=== PATIENT | male | born 1965 | race Hispanic/Latino ===

== ENCOUNTER 2019-06-20 13:15 | Outpatient (CLI) | payer BC ==
[2019-06-20] MEDS ORDERED: Magnevist 469MG/ML 20 ML VIAL ONE (13:34)
--- NOTE | 2019-06-20 14:55 | MRI ---
EXAM: MRI of the pelvis/prostate without and with contrast HISTORY: Prostate cancer COMPARISON: None TECHNIQUE: Multiplanar multisequence MR images were obtained of the pelvis without and with IV contra st. Evaluation of this exam was performed with a [employer] workstation. FINDINGS: Central gland: Moderate hypertrophy of the central gland consistent with BPH. No suspicious low T2 si gnal lesion is seen. Peripheral zone: There is a 14 mm low T2 signal lesion in the left peripheral zone of the prostate ne ar the apex. This has low signal on the ADC map but not definitely bright signal on the high B value diffusion sequence. Seminal vesicles: Intact without abnormality Neurovascular bundles: Intact Pelvic lymph nodes: No pelvic adenopathy Other visualized intrapelvic structures: Unremarkable Osseous structures: No marrow signal abnormality IMPRESSION: PI-RADS Category 4-high likelihood that a clinically significant cancer is present.
== END 2019-06-20 13:16 | disposition home or self-care (01) ==
LOC: TBSIIMAG 13:15
PROVIDERS: ATTEND Urology
DX: C61 Malignant neoplasm of prostate (principal)
CPT/HCPCS: 72197; A9579

== ENCOUNTER 2019-11-11 07:27 | Outpatient (CLI) | payer BC ==
--- NOTE | 2019-11-11 09:07 | CT ---
CT ABDOMEN WITH ORAL AND IV CONTRAST: HISTORY: Prostate cancer. Left upper abdominal pain and left flank pain. COMPARISON: None. FINDINGS: The lung bases are unremarkable. There is 2.5 cm lesion in the posterior segment of the right lobe o f the liver with peripheral nodular enhancement. A small hiatal hernia is present. The spleen, panc reas, adrenal glands, and kidneys are normal. No free air, lymphadenopathy or free fluid is seen in the abdomen. The small bowel loops are not abn ormally dilated. There are vascular calcifications without evidence of aneurysmal dilatation of the abdominal aorta. No osteolytic or osteoblastic lesions are seen. In the lower chest, there is incomplete visualization of an 18 mm nodular density in the posterior me diastinum to the left of midline between the heart and descending thoracic aorta. IMPRESSION: 1. Small hiatal hernia. 2. Probable hemangioma. Evaluation with Technetium labeled RBC scan is recommended. 3. A nodular density in the posterior mediastinum. This should be evaluated with a dedicated contra st-enhanced CT scan of the chest. POS: [facility]
== END 2019-11-11 07:28 | disposition home or self-care (01) ==
LOC: SCSCT 07:27
PROVIDERS: ATTEND Family Medicine
DX: C61 Malignant neoplasm of prostate (principal); R10.9 Unspecified abdominal pain; K44.9 Diaphragmatic hernia without obstruction or gangrene; R93.7 Abnormal findings on diagnostic imaging of other parts of musculoskeletal system
CPT/HCPCS: 74170

== ENCOUNTER 2019-12-02 09:03 | Outpatient (CLI) | payer BC ==
--- NOTE | 2019-12-02 12:07 | CT ---
CT CHEST WITH IV CONTRAST: Date: 12/02/2019 HISTORY: Mediastinal mass. FINDINGS: There is a 2.0 cm well-circumscribed nodular density in the posterior mediastinum between the heart a nd the descending thoracic aorta to the left of midline. No other mediastinal masses or lymphadenopat hy seen. No hilar or axillary mass or lymphadenopathy identified. No pleural or pericardial effusions seen. No pneumothoraces, focal areas of consolidation, or lung masses/nodules are seen. There are mild degenerative changes in the spine. There is a probable hemangioma in the posterior seg ment of the right lobe of the liver. IMPRESSION: 2.0 cm posterior mediastinal mass. Further evaluation with PET scan would be helpful. POS: [facility]
== END 2019-12-02 09:04 | disposition home or self-care (01) ==
LOC: SCSCT 09:03
PROVIDERS: ATTEND Family Medicine
DX: J98.59 Other diseases of mediastinum, not elsewhere classified (principal)
CPT/HCPCS: 71260

== ENCOUNTER 2020-04-10 08:09 | Outpatient (CLI) | payer BC ==
[2020-04-10] MEDS ORDERED: Magnevist 469MG/ML 20 ML VIAL ONE (13:14)
--- NOTE | 2020-04-10 14:17 | MRI ---
MRI Pelvis W WO Con History: Elevated PSA. Prostate cancer. Comparison: Prostate MRI May 2019 Findings: The large volume rectal gas renders the diffusion weighted imaging sequence nondiagnostic. Prostate: Abnormal decreased T2 signal throughout the left peripheral zone invading into the transiti onal zone from the base through the mid gland extending to the apex and 3:00-6:00. Mass bulges and extends through the capsule at 4-5:00 high-grade degree of suspicion for extracapsular extension and left neurovascular bundle invasion. Close approximation with the anterior rectal wall. This mass measures up to 2.3 cm in greatest dimension and demonstrates type III kinetics. Prostate measures 4.2 x 3 x 3 cm for a volume of 19.75 mL. Lymph nodes: No enlarged pelvic adenopathy. Bones: No abnormal foci of marrow signal replacement to suggest osseous metastatic disease. Circumfer ential disc bulge at L5/S1 with moderate neural foraminal narrowing and abutment of both S1 nerve roots. Intrapelvic soft tissues: The maximal vesicles are intact. Bladder is unremarkable. Anterior fibromuscular stroma is normal Impression: 1. PI-RADS Category 5: Very high (clinically significant prostate cancer is very likely to be present ). Large mass in the left peripheral and transitional zone extending from the base to the apex at 3:00-6:00 with extraprostatic extension and neurovascular bundle abutment/invasion. 2. No pelvic adenopathy. 3. No evidence for pelvic osseous metastatic disease.
== END 2020-04-10 08:10 | disposition home or self-care (01) ==
LOC: TBSIIMAG 08:09
PROVIDERS: ATTEND Urology
DX: C61 Malignant neoplasm of prostate (principal); R22.2 Localized swelling, mass and lump, trunk
CPT/HCPCS: 72197; A9579

== ENCOUNTER 2021-02-13 08:14 | Outpatient (CLI) | payer BC | END 2021-02-13 08:15 | disposition home or self-care (01) | LOC: SCSMRI 08:14 | PROVIDERS: ATTEND Family Medicine | DX: M47.26 Other spondylosis with radiculopathy, lumbar region (principal) | CPT/HCPCS: 72148 ==